=== PATIENT | female | born 1975 | race Caucasian/White ===

== ENCOUNTER 2018-04-20 18:59 | Emergency (ER) | payer SELFPAY ==
[2018-04-20] MEDS ORDERED: Acetaminophen 500 MG TAB ONE (19:19)
[2018-04-20] MEDS ORDERED: Ketorolac Tromethamine 30 MG/ML VIAL ONE (19:19)
[2018-04-20 19:53] LABS: #Basophils 0.1 thou/uL (0.0-0.2); #Eosinphils 0.2 thou/uL (0.0-0.7); #Monocytes 0.7 thou/uL (0.11-0.59); #Neutrophils 5.1 thou/uL (1.40-6.50); %Eosinophils 2.4 % (0.0-10.0); %Lymphocytes 32.8 % (21.0-51.0); %Monocytes 7.2 % (0.0-10.0); %Neutrophils 56.6 % (42.0-75.0); Hemoglobin 13.8 g/dL (12.0-16.0); Mean Corpuscular HGB CONC 35.7 g/dL (32.0-36.0); Mean Corpuscular Volume 86.9 fL (78.0-98.0); Mean Platelet Volume 6.2 fL (7.4-10.4); Platelet Count 298 thou/uL (130-400); RBC Distribution Width 11.4 % (11.5-14.5); Red Blood Cell (RBC) Count 4.44 mill/uL (4.20-5.40)
[2018-04-20 19:54] LABS: Bilirubin Negative (Negative); Blood, Urine Negative (Negative); Clarity Clear (Clear); Glucose, Urine (Dipstick) Negative (Negative); Leukocyte Trace (Negative); Nitrite Negative (Negative); Protein, Urine (Dipstick) Negative (Neg-Trace); Specific Gravity, Urine 1.015 (1.005-1.030); Urobilinogen 0.2 mg/dL (0.2-1.0)
[2018-04-20 20:02] LABS: ALT (SGPT) 13 U/L (8-55); AST (SGOT) 15 U/L (5-34); Albumin 4.2 g/dL (3.5-5.0); Alkaline Phosphatase 83 U/L (40-150); Anion Gap 11 mmol/L (10-20); BUN (Urea Nitrogen) 11 mg/dL (7.0-18.7); Bilirubin, Total 0.2 mg/dL (0.2-1.2); Calc. Creatinine Clearance 0 mL/min (70-130); Calcium 9.5 mg/dL (7.8-10.44); Carbon Dioxide 24 mmol/L (22-29); Chloride 110 mmol/L (98-107); Estimated GFR-MDRD Greater than 90; Glucose 94 mg/dL (70-105); Potassium 3.9 mmol/L (3.5-5.1); Protein, Total 7.2 g/dL (6.0-8.3); Sodium 141 mmol/L (136-145)
[2018-04-20 20:05] LABS: Bacteria/HPF Rare-Few HPF (None Seen); Hyaline Casts/LPF 0-3 HYALINE CAST LPF (0-3 Hyaline); RBC/HPF 0-3 HPF (0-3); Squamous Epithelial 0-3 HPF (0-3); WBC/HPF 0-3 HPF (0-3)
--- NOTE | 2018-04-20 20:33 | CT ---
NONCONTRAST CT OF THE ABDOMEN AND PELVIS: Date: 04-20-18 History: Right flank pain, right lower quadrant pain. History of renal calculi. Comparison: 12-04-15 FINDINGS: The lung bases are clear. There is a punctate inferior pole right renal calculus with at least three nonobstructing left renal calculi, the largest measuring 2-3 mm. No ureteral calculus is visualized. There is no evidence of hy dronephrosis. Post cholecystectomy changes are noted. Calcified granulomata are again seen in the spleen. The pancreas, bilateral adrenal glands, and partially distended urinary bladder demonstrate a grossly normal nonenhanced CT appearance. A small amount of retained fecal material is seen in the colon. The appendix is not definitively visu alized but there are no secondary signs to suggest appendicitis. Noncontrast CT of the abdomen and pelvis is stable compared to the prior study in 2016. IMPRESSION: 1. Punctate nonobstructing bilateral renal calculi. There is no hydronephrosis. 2. Post cholecystectomy changes. 3. Nonvisualization of the appendix, but there are no secondary CT signs to suggest appendicitis. POS: [facility]
== END 2018-04-20 20:20 | disposition home or self-care (01) ==
LOC: SCSER 18:59
DX: N39.0 Urinary tract infection, site not specified (principal); F17.210 Nicotine dependence, cigarettes, uncomplicated
CPT/HCPCS: 74176; 80053; 81003; 81015; 83605; 85025; 87077; 87086; 87186; 96361; 96374; J1885

== ENCOUNTER 2018-11-13 09:46 | Emergency (ER) | payer SELFPAY ==
[2018-11-13] MEDS ORDERED: Morphine 4 MG/ML VIAL ONE ×2 (10:11→11:00)
[2018-11-13] MEDS ORDERED: Ondansetron PF 4 MG/2 ML Vial ONE (10:11)
[2018-11-13] MEDS ORDERED: HYDROcodone/Acetaminophen 5/325 mg Tablet ONE (11:00)
--- NOTE | 2018-11-13 11:14 | RAD ---
CHEST 1 VIEW LEFT RIBS 2 VIEWS: HISTORY: Trauma. Pain. FINDINGS: Normal cardiac silhouette. The pulmonary vessels and hilum are normal. Costophrenic angles are jus r. No consolidation. Densities projecting in the left and right hemithorax likely represent bilater al nipple shadows. Confirmation with nipple markers is recommended. No pneumothorax or acute osseou s abnormalities. LEFT RIB SERIES: There is a nondisplaced fracture involving the left 7th rib. Additional fractures are not appreciate d. IMPRESSION: 1. Fracture involving the lateral left 7th rib. 2. Probable bilateral nipple shadows. Confirmation with nipple markers. POS: [facility]
== END 2018-11-13 11:05 | disposition home or self-care (01) ==
LOC: ERS 09:46
DX: S22.32XA Fracture of one rib, left side, initial encounter for closed fracture (principal); F17.210 Nicotine dependence, cigarettes, uncomplicated; Y04.0XXA Assault by unarmed brawl or fight, initial encounter
CPT/HCPCS: 96374; 96375; 96376; J2270; J2405

== ENCOUNTER 2019-12-19 15:46 | Emergency (ER) | payer SELFPAY ==
[2019-12-19] MEDS ORDERED: Lorazepam 1 MG TAB ONE ×2 (17:00)
== END 2019-12-19 17:35 | disposition home or self-care (01) ==
LOC: ERS 15:46
DX: F31.9 Bipolar disorder, unspecified (principal); Z91.14 Patient's other noncompliance with medication regimen; F41.9 Anxiety disorder, unspecified; F25.9 Schizoaffective disorder, unspecified; F17.210 Nicotine dependence, cigarettes, uncomplicated; Z87.442 Personal history of urinary calculi; Z79.899 Other long term (current) drug therapy; Z85.43 Personal history of malignant neoplasm of ovary
CPT/HCPCS: 99283

== ENCOUNTER 2020-09-04 03:49 | Emergency (ER) | payer SELFPAY ==
[2020-09-04] MEDS ORDERED: Ketorolac Tromethamine 30 MG/ML VIAL ONE (05:01)
[2020-09-04 05:09] LABS: #Lymphocytes 1.7 thou/uL (1.20-3.40); #Monocytes 0.9 thou/uL (0.11-0.59); #Neutrophils 4.4 thou/uL (1.40-6.50); %Basophils 0.2 % (0.0-1.0); %Eosinophils 0.3 % (0.0-10.0); %Lymphocytes 24.4 % (21.0-51.0); %Monocytes 12.3 % (0.0-10.0); %Neutrophils 62.8 % (42.0-75.0); Hemoglobin 16.2 g/dL (12.0-16.0); Mean Corpuscular HGB CONC 34.2 g/dL (32.0-36.0); Mean Corpuscular Hemoglobin 30.4 pg (27.0-31.0); Mean Corpuscular Volume 88.9 fL (78.0-98.0); Mean Platelet Volume 7.5 fL (7.4-10.4); Platelet Count 344 thou/uL (130-400); RBC Distribution Width 12.2 % (11.5-14.5); Red Blood Cell (RBC) Count 5.32 mill/uL (4.20-5.40)
[2020-09-04 05:45] LABS: ALT (SGPT) 17 U/L (8-55); AST (SGOT) 25 U/L (5-34); Albumin 4.5 g/dL (3.5-5.0); Alkaline Phosphatase 119 U/L (40-110); Anion Gap 17 mmol/L (10-20); BUN (Urea Nitrogen) 19 mg/dL (7.0-18.7); Bilirubin, Total 0.3 mg/dL (0.2-1.2); Calc. Creatinine Clearance 0 mL/min (70-130); Calcium 9.1 mg/dL (7.8-10.44); Carbon Dioxide 21 mmol/L (22-29); Chloride 105 mmol/L (98-107); Globulin 4.3 g/dL (2.4-3.5); Glucose 112 mg/dL (70-105); Potassium 4.4 mmol/L (3.5-5.1); Protein, Total 8.8 g/dL (6.0-8.3); Sodium 139 mmol/L (136-145)
--- NOTE | 2020-09-04 08:38 | RAD ---
PORTABLE CHEST 1 VIEW: Date: 09/04/2020 Time: 0421 hours HISTORY: Headache, congestion, decreased appetite, decreased taste and smell. COMPARISON: 05/17/2019. FINDINGS: The heart size in normal. The lungs are expanded without focal areas of consolidation, pneumothoraces , or pleural effusions. IMPRESSION: No radiographic evidence of acute cardiopulmonary process. POS: [facility]
[2020-09-04 12:50] LABS: SARS-CoV-2 MS2 Negative; SARS-CoV-2 N Gene Positive; SARS-CoV-2 S Gene Positive; SARS-CoV-2 by NAA DETECTED (NotDetected); SARS-CoV-2 orf1ab Positive
== END 2020-09-04 06:08 | disposition home or self-care (01) ==
LOC: ERS 03:49
DX: U07.1 COVID-19 (principal)
CPT/HCPCS: 71045; 80053; 85025; 87635; 94760; 96374; J1885; U0003

== ENCOUNTER 2020-10-13 00:29 | Emergency (ER) | payer SELFPAY ==
[2020-10-13 01:19] LABS: #Lymphocytes 1.5 thou/uL (1.20-3.40); #Monocytes 0.9 thou/uL (0.11-0.59); #Neutrophils 9.4 thou/uL (1.40-6.50); %Basophils 0.1 % (0.0-1.0); %Eosinophils 0.2 % (0.0-10.0); %Lymphocytes 12.7 % (21.0-51.0); %Monocytes 7.3 % (0.0-10.0); %Neutrophils 79.7 % (42.0-75.0); Hemoglobin 14.1 g/dL (12.0-16.0); Mean Corpuscular Hemoglobin 31.7 pg (27.0-31.0); Mean Corpuscular Volume 93.3 fL (78.0-98.0); Mean Platelet Volume 7.1 fL (7.4-10.4); Platelet Count 225 thou/uL (130-400); Red Blood Cell (RBC) Count 4.44 mill/uL (4.20-5.40); White Blood Cell (WBC) Count 11.8 thou/uL (4.8-10.8)
[2020-10-13 01:26] LABS: BHCG - Serum Negative (NEGATIVE); Pregs Control Background? CLEAR/WHITE (CLR/WHITE); Pregs Control Bar Appear? YES (CONTROL BAR)
[2020-10-13 01:36] LABS: Acetaminophen Less than 6.0 mcg/mL (10.0-30.0); Alcohol Less than 10 mg/dL (Less than 10); Salicylate Less than 8.0 mg/dL (15.0-30.0)
[2020-10-13 01:44] LABS: ALT (SGPT) 17 U/L (8-55); AST (SGOT) 21 U/L (5-34); Albumin 4.4 g/dL (3.5-5.0); Alkaline Phosphatase 104 U/L (40-110); Anion Gap 16 mmol/L (10-20); BUN (Urea Nitrogen) 10 mg/dL (7.0-18.7); Bilirubin, Total 0.3 mg/dL (0.2-1.2); Calc. Creatinine Clearance 0 mL/min (70-130); Calcium 9.6 mg/dL (7.8-10.44); Carbon Dioxide 23 mmol/L (22-29); Chloride 104 mmol/L (98-107); Globulin 3.5 g/dL (2.4-3.5); Glucose 89 mg/dL (70-105); Potassium 3.5 mmol/L (3.5-5.1); Protein, Total 7.9 g/dL (6.0-8.3); Sodium 139 mmol/L (136-145)
[2020-10-13 01:53] LABS: Thyroid Stimulating Hormone 0.2194 uIU/mL (0.35-4.94)
[2020-10-13 02:14] LABS: Bilirubin Negative (Negative); Blood, Urine Negative (Negative); Clarity Turbid (Clear); Glucose, Urine (Dipstick) Normal (Negative); Ketone, Urine Negative (Negative); Leukocyte 75 Leu/uL (Negative); Nitrite Negative (Negative); Protein, Urine (Dipstick) Negative (Neg-Trace); RBC/HPF 0-3 HPF (0-3); Specific Gravity, Urine 1.012 (1.002-1.036); Squamous Epithelial 0-3 HPF (0-3); Urobilinogen Normal mg/dL (Less than 2)
[2020-10-13 02:17] LABS: Amphetamine Not Detected (NotDetected); Bacteria/HPF 1+ HPF (None Seen); Barbiturates Screen Detected (NotDetected); Benzodiazepine Screen Detected (NotDetected); Cocaine Metabolite Screen Not Detected (NotDetected); Medtox Control Line Valid? VALID (VALID); Medtox Reader # READER 4; Methadone Detected (NotDetected); Methamphetamine Not Detected (NotDetected); Opiate Screen Not Detected (NotDetected); Oxycodone Screen Not Detected (NotDetected); Phencyclidine (PCP) Not Detected (NotDetected); THC/Cannabinoid Screen Not Detected (NotDetected); Tricyclic Screen Detected (NotDetected)
[2020-10-13] MEDS ORDERED: Cephalexin 250 MG CAP ONE ×2 (02:41→19:41)
--- NOTE | 2020-10-13 13:48 | RAD ---
XR Ankle Lt 3 View STANDARD INDICATION: Left ankle pain and injury COMPARISON: None. FINDINGS: Bones: There is a nondisplaced fracture involving the base of the fifth metatarsal Ankle mortise: Symmetric. Talar Dome: Intact. Subtalar joint: Normal. Visualized hindfoot: Normal. Periarticular soft tissues: Normal. IMPRESSION: 1. Nondisplaced base of the fifth metatarsal fracture
--- NOTE | 2020-10-13 13:49 | RAD ---
XR Foot Lt 3 View STANDARD INDICATION: Left foot pain COMPARISON: August 15, 2016 FINDINGS: Bones: There is a nondisplaced fracture involving the base of the fifth metatarsal which is new from the prior exam. There has been interval healing of the third metatarsal base fracture seen on the prior exam. 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 Joints: Joints spaces appear preserved. Lisfranc alignment: Lisfranc alignment appears within normal limits. Soft tissues: No soft tissue injury demonstrated. No radiographic foreign body demonstrated. IMPRESSION: Nondisplaced fifth metatarsal base fracture
[2020-10-13] MEDS ORDERED: risperiDONE 1 MG TAB ONE ×2 (19:41→19:42)
[2020-10-15] MEDS ORDERED: Ibuprofen 600 MG TAB PO PRN (08:18)
[2020-10-15] MEDS ORDERED: hydrOXYzine Pamoate 25 mg Capsule PO PRN (08:19)
[2020-10-15] MEDS ORDERED: Acetaminophen 325 MG TAB PO PRN (08:19)
[2020-10-15] MEDS ORDERED: Ibuprofen 200 MG TAB PO SCH (08:30)
[2020-10-15] MEDS ORDERED: risperiDONE 1 MG TAB PO SCH ×2 (08:30→09:00)
[2020-10-15] MEDS ORDERED: Lorazepam 1 MG TAB PO SCH (08:30)
[2020-10-15] MEDS ORDERED: Cephalexin 250 MG CAP PO SCH (09:00)
--- NOTE | 2020-11-02 12:52 | EKG ---
Test Reason : Blood Pressure : / mmHG Vent. Rate : 091 BPM Atrial Rate : 091 BPM P-R Int : 158 ms QRS Dur : 082 ms QT Int : 358 ms P-R-T Axes : 051 008 002 degrees QTc Int : 440 ms Normal sinus rhythm Possible Left atrial enlargement Nonspecific T wave abnormality Abnormal ECG Confirmed by ELENI Hair, VENTURA ([id number]), editorial director KADY CRENSHAW ([id number]) on 11/02/2020 12:51:52 PM Referred By: Confirmed By:VENTURA KNOWLES M.D.
== END 2020-10-15 14:58 | disposition home or self-care (01) ==
LOC: ERS 00:29
DX: F43.20 Adjustment disorder, unspecified (principal); F19.10 Other psychoactive substance abuse, uncomplicated; F11.10 Opioid abuse, uncomplicated; F13.10 Sedative, hypnotic or anxiolytic abuse, uncomplicated
CPT/HCPCS: 36415; 80053; 80306; 80307; 81003; 81015; 84443; 84703; 85025; 93005